=== PATIENT | male | born 1975 ===

== ENCOUNTER 2023-05-23 17:41 | Emergency (ER) | payer MEDICAID ==
[~2023-05-23] VITALS: Ht 180.3 cm; Wt 91.4 kg
[2023-05-23 18:47] VITALS: BP 123/75; PULSE 80; RESP 18; TEMP 99.2; O2SAT 99
--- NOTE | 2023-05-23 20:12 | NUR ---
PT NIL, TRIED TO CALL THE NUMBER ON CHART AND IT SAYS 'THE NUMBER YOU HAVE DIALED..'
== END 2023-05-23 21:32 | disposition left against medical advice (07) ==
LOC: ER 17:42
DX: M25.532 Pain in left wrist (principal); Z53.21 Procedure and treatment not carried out due to patient leaving prior to being seen by health care provider
CPT/HCPCS: 73110; 99281